=== PATIENT | male | born 1990 | race Caucasian/White ===

== ENCOUNTER 2018-05-22 21:46 | Emergency (ER) | payer MEDICAID ==
[~2018-05-22] VITALS: Ht 177.8 cm; Wt 102.3 kg
[2018-05-22 21:53] VITALS: Ht 177.8 cm; Wt 102.3 kg
[2018-05-22] MEDS ORDERED: PERMETHRIN60 GM TOPICAL (22:48)
[2018-05-22 23:28] VITALS: BP 128/73
== END 2018-05-22 23:28 | disposition home or self-care (01) ==
LOC: D.ER 21:46
DX: B88.8 Other specified infestations (principal)

== ENCOUNTER 2019-05-13 20:06 | Emergency (ER) | payer MEDICAID ==
[~2019-05-13] VITALS: Ht 177.8 cm; Wt 100.0 kg
[~2019-05-13 20:06] MED LIST: PERMETHRIN60 GM TOPICAL
[2019-05-13 20:11] VITALS: Ht 177.8 cm; Wt 100.0 kg
[2019-05-13] MEDS ORDERED: ADDERALL 5 MG TA5 M1 PO (20:45)
[2019-05-13] MEDS ORDERED: ULTRAM50 MG PO (21:44)
[2019-05-13 22:00] VITALS: BP 128/84
== END 2019-05-13 22:00 | disposition home or self-care (01) ==
LOC: D.ER 20:06
DX: S50.01XA Contusion of right elbow, initial encounter (principal)